=== PATIENT | female | born 1970 | race Two or more races ===

== ENCOUNTER 2025-07-02 20:12 | Emergency (ER) | payer OTHER ==
[~2025-07-02] VITALS: Ht 165.1 cm; Wt 49.0 kg
[2025-07-02 20:23] VITALS: BP 116/63; O2SAT 98
[2025-07-02] MEDS ORDERED: GABA300C PO (21:00)
[2025-07-02] MEDS ORDERED: NAPR-1009 PO (21:00)
[2025-07-02] MEDS ORDERED: KETOROLAC TROMETHAMINE 30 MG INJ ONE (21:00)
[2025-07-02] MEDS: KETOROLAC TROMETHAMINE 30 MG INJ IM ONE (21:06)
== END 2025-07-02 21:07 | disposition home or self-care (01) ==
LOC: ER 20:33
DX: M54.2 Cervicalgia (principal); M79.601 Pain in right arm; M54.12 Radiculopathy, cervical region; F17.200 Nicotine dependence, unspecified, uncomplicated
CPT/HCPCS: 99283; J1885; A4606; A4663